=== PATIENT | female | born 1960 | race Caucasian/White ===

== ENCOUNTER 2021-05-06 08:57 | Inpatient (IN) | payer MEDICAID ==
[~2021-05-06] VITALS: Ht 157.5 cm; Wt 61.4 kg
[~2021-05-06 08:57] MED LIST: ASPI-611 PO; CALCIUM PO; MEGA RED PO; THY60T PO
[2021-05-06] MEDS ORDERED: normal saline 1000ML IV soln IVB ONE (09:20)
[2021-05-06 09:59] LABS: CLARITY,URINE CLEAR (Clear); GLUCOSE, URINE NEGATIVE (Neg); KETONES,URINE NEGATIVE (Neg); LEUKOCYTE ESTERASE ,URINE NEGATIVE (Neg); NITRITES, URINE NEGATIVE (Neg); OCCULT BLOOD,URINE NEGATIVE (Neg); PROTEIN,URINE NEGATIVE (Neg); UROBILINOGEN,URINE 0.2 E.U/dL (0.2-1.0)
[2021-05-06 10:01] LABS: BASOPHILS % (AUTO) 0.7 % (0-1); EOSINOPHILS # (AUTO) 0.2 X10'3 (0-0.9); EOSINOPHILS % (AUTO) 2.7 % (0-6); HEMATOCRIT 39.5 % (35.0-45.0); HEMOGLOBIN 13.1 g/dl (12.0-16.0); LYMPHOCYTES # (AUTO) 1.1 X10'3 (1.1-4.8); LYMPHOCYTES % (AUTO) 19.4 % (21-51); MEAN CORPUSCULAR HEMOGLOBIN 31.8 PG (27.0-31.0); MEAN CORPUSCULAR HGB CONC 33.1 g/dL (33.0-36.5); MEAN PLATELET VOLUME 9.2 FL (7.4-10.4); MONOCYTES # (AUTO) 0.6 X10'3 (0-0.9); MONOCYTES % (AUTO) 11.3 % (2-12); NEUTROPHILS # (AUTO) 3.7 X10'3 (1.8-7.7); NEUTROPHILS % (AUTO) 65.9 % (42-75); PLATELET COUNT 340 X10'3 (140-440); RED BLOOD COUNT 4.11 X10'6 (4.20-5.60); WHITE BLOOD COUNT 5.6 X10'3 (4.5-11.0)
[2021-05-06 10:04] LABS: UA COLLECTION TYPE CLN CATCH MIDSTREAM
[2021-05-06 10:05] LABS: COLOR,URINE DARK YELLOW (Yellow)
[2021-05-06 10:17] LABS: ALANINE AMINOTRANSFERASE 512 U/L (12-78); ALBUMIN 3.1 G/DL (3.4-5.0); ALBUMIN/GLOBULIN RATIO 0.6 (1.1-1.5); ALKALINE PHOSPHATASE 540 IU/L (46-116); ANION GAP 10 (8-16); ASPARTATE AMINO TRANSFERASE 242 U/L (10-37); BILIRUBIN,TOTAL 6.4 MG/DL (0.1-1.0); BLOOD UREA NITROGEN 9 MG/DL (7-18); BUN/CREATININE RATIO 13.2 (6.6-38.0); CALCIUM 9.6 MG/DL (8.5-10.1); CHLORIDE 102 MMOL/L (99-107); CREATININE 0.68 MG/DL (0.40-0.90); GLUCOSE 122 MG/DL (70-104); LIPASE 825 U/L (73-393); POTASSIUM 3.9 MMOL/L (3.5-5.1); SODIUM 138 MMOL/L (135-145); TOTAL CARBON DIOXIDE 25.8 MMOL/L (24-32); TOTAL PROTEIN 8.2 G/DL (6.4-8.2); eGFR 89 ML/MIN
[2021-05-06 10:17] LABS: URINE AMPHETAMINE SCREEN NEGATIVE (Neg); URINE BARBITUATE SCREEN NEGATIVE (Neg); URINE BENZODIAZEPINES SCREEN NEGATIVE (Neg); URINE CANNABINOID SCREEN NEGATIVE (Neg); URINE COCAINE SCREEN NEGATIVE (Neg); URINE METHADONE SCREEN NEGATIVE (Neg); URINE OPIATE SCREEN NEGATIVE (Neg); URINE PHENCYCLIDINE SCREEN NEGATIVE (Neg)
[2021-05-06 10:18] LABS: ETHANOL < 0.010 GM/DL (0.0-0.010)
[2021-05-06] MEDS ORDERED: piperacillin/tazo 3.375gm/50ml 50 ML IV ONE (10:40)
[2021-05-06] MEDS ORDERED: normal saline 1000ML IV soln IV ONE (10:40)
[2021-05-06] MEDS ORDERED: CefTRIAXone 2gm/D5W 50ml BAG 50 ML IV ONE (10:40)
--- NOTE | 2021-05-06 10:50 | NUR ---
hunter grace at bedside.
[2021-05-06] MEDS ORDERED: CefTRIAXone 2gm/NS 100ml IVPB 100 ML IV ONE (10:56)
--- NOTE | 2021-05-06 11:25 | NUR ---
MRI consent signed. Pt apparently had water while here, and is being delayed until 1500.
--- NOTE | 2021-05-06 11:27 | NUR ---
Called pharmacy re: 2gm Herve. Awaiting callback
--- NOTE | 2021-05-06 12:30 | NUR ---
Abx done. Updated pt, no apparent distress or needs at this time.
[2021-05-06] MEDS ORDERED: magnesium hydroxide 30ml (MOM) UD suspension PO PRN (12:45)
[2021-05-06] MEDS ORDERED: diphenhydrAMINE 25mg capsule PO PRN (12:45)
[2021-05-06] MEDS ORDERED: potassium Cl 20 mEq SR tablet PO PRN ×2 (12:45)
[2021-05-06] MEDS ORDERED: magnesium Cl slow-release 64mg tablet PO PRN (12:45)
[2021-05-06] MEDS ORDERED: magnesium 2GM in 50ml NS 50 ML IV PRN (12:45)
[2021-05-06] MEDS ORDERED: ondansetron/PF 4mg/2ml inj IV PRN (12:45)
[2021-05-06] MEDS: normal saline 1000ml 1,000 ML IV SCH (12:45)
[2021-05-06] MEDS ORDERED: magnesium 4gm in 100ml NS 100 ML IV PRN (12:45)
[2021-05-06] MEDS ORDERED: mag hydrox/Alum hydrox/simeth 30ml oral suspension PO PRN (12:45)
[2021-05-06] MEDS ORDERED: acetaminophen 650mg rectal suppository RC PRN (12:45)
[2021-05-06] MEDS ORDERED: HYDROcodone/acetaminophen 5mg/325mg tablet PO PRN (12:45)
[2021-05-06] MEDS ORDERED: morphine 2 MG/ML inj. syringe IV PRN ×2 (12:45)
[2021-05-06] MEDS ORDERED: HYDROcodone/acetaminophen 10/325mg tab PO PRN (12:45)
[2021-05-06] MEDS ORDERED: potassium CL 10mEq/100ml bag 100 ML IV PRN (12:45)
[2021-05-06] MEDS ORDERED: bisacodyl 10mg suppository rectal RC PRN (12:45)
[2021-05-06] MEDS ORDERED: acetaminophen 325mg tablet PO PRN ×2 (12:45)
[2021-05-06 13:17] LABS: HEMOGLOBIN A1C 6.2 % (4.5-6.2)
--- NOTE | 2021-05-06 15:14 | NUR ---
Received patient to room 360A via wheelchair accompanied by x1 staff. Patient is alert and oriented in no apparent acute distress and denies pain but has some discomfort at this time. Patient states, "Oh, I'm fine." Patient oriented to room and call light. Bed is low and locked. Call light placed within reach. Patient able to ambulate to bathroom independently.
[2021-05-06 15:16] VITALS: BP 149/80
--- NOTE | 2021-05-06 18:13 | NUR ---
Problems reprioritized. Patient report given, questions answered & plan of care reviewed with Do Fallon. Vasyl aware patient down to MRI.
--- NOTE | 2021-05-06 18:45 | NUR ---
Patient in room BLA[facility] 360. I have received report from PACO DOVE and had the opportunity to ask questions and assume patient care.
[2021-05-06 19:00] VITALS: BP 133/77
[2021-05-06] MEDS: docusate sod 100mg capsule PO SCH (19:31)
[2021-05-06] MEDS: K and/or MAG REPLACEMENT MC SCH (19:32)
[2021-05-07] VITALS (16 sets, daily range): BP systolic 120–155; BP diastolic 62–143
[2021-05-07] MEDS: piperacillin/tazo 3.375gm/50ml 50 ML IV SCH ×3 (00:46→16:14)
[2021-05-07] MEDS: normal saline 1000ml 1,000 ML IV SCH ×3 (00:55→12:29)
--- NOTE | 2021-05-07 06:00 | NUR ---
Patient in room [facility]LA[facility] 360. I have received report from Tessa Zarate RN and had the opportunity to ask questions and assume patient care.
--- NOTE | 2021-05-07 06:22 | NUR ---
Problems reprioritized. Patient report given, questions answered & plan of care reviewed with MARILEE DOVE.
[2021-05-07 06:39] LABS: BASOPHILS % (AUTO) 0.5 % (0-1); EOSINOPHILS # (AUTO) 0.1 X10'3 (0-0.9); EOSINOPHILS % (AUTO) 3.2 % (0-6); HEMATOCRIT 33.2 % (35.0-45.0); HEMOGLOBIN 11.1 g/dl (12.0-16.0); LYMPHOCYTES # (AUTO) 0.9 X10'3 (1.1-4.8); LYMPHOCYTES % (AUTO) 20.4 % (21-51); MEAN CORPUSCULAR HEMOGLOBIN 32.2 PG (27.0-31.0); MEAN CORPUSCULAR HGB CONC 33.5 g/dL (33.0-36.5); MEAN PLATELET VOLUME 9.9 FL (7.4-10.4); MONOCYTES # (AUTO) 0.7 X10'3 (0-0.9); MONOCYTES % (AUTO) 15.1 % (2-12); NEUTROPHILS # (AUTO) 2.7 X10'3 (1.8-7.7); NEUTROPHILS % (AUTO) 60.8 % (42-75); PLATELET COUNT 230 X10'3 (140-440); RED BLOOD COUNT 3.46 X10'6 (4.20-5.60); RED CELL DISTRIBUTION WIDTH 14.3 % (11.5-14.5); WHITE BLOOD COUNT 4.4 X10'3 (4.5-11.0)
[2021-05-07 07:03] LABS: ALANINE AMINOTRANSFERASE 390 U/L (12-78); ALBUMIN 2.4 G/DL (3.4-5.0); ALKALINE PHOSPHATASE 451 IU/L (46-116); ANION GAP 14 (8-16); ASPARTATE AMINO TRANSFERASE 180 U/L (10-37); BILIRUBIN,TOTAL 5.8 MG/DL (0.1-1.0); BLOOD UREA NITROGEN 4 MG/DL (7-18); BUN/CREATININE RATIO 7.8 (6.6-38.0); CALCIUM 8.7 MG/DL (8.5-10.1); CHLORIDE 107 MMOL/L (99-107); CREATININE 0.51 MG/DL (0.40-0.90); GLUCOSE 125 MG/DL (70-104); HDL CHOLESTEROL 12 MG/DL (35-60); LDL CHOLESTEROL 150 MG/DL (50-100); LIPASE 412 U/L (73-393); MAGNESIUM 1.9 MG/DL (1.5-2.4); POTASSIUM 3.6 MMOL/L (3.5-5.1); SODIUM 143 MMOL/L (135-145); eGFR > 90 ML/MIN
[2021-05-07 07:05] LABS: ALBUMIN/GLOBULIN RATIO 0.6 (1.1-1.5); CHOLESTEROL 216 MG/DL (0-200); PHOSPHORUS 3.5 MG/DL (2.3-4.5); TOTAL PROTEIN 6.5 G/DL (6.4-8.2); TRIGLYCERIDES 153 MG/DL (20-135)
[2021-05-07] MEDS: docusate sod 100mg capsule PO SCH ×2 (08:00→20:00)
[2021-05-07] MEDS: K and/or MAG REPLACEMENT MC SCH ×2 (08:00→20:00)
[2021-05-07] MEDS: thyroid, pork 30mg tablet PO SCH (08:35)
[2021-05-07] MEDS: pantoprazole 40mg Tablet.DR PO SCH (08:41)
[2021-05-07 08:47] LABS: PLATELET ESTIMATE NORMAL; TOTAL CELLS COUNTED 100
--- NOTE | 2021-05-07 10:46 | NUR ---
Per Dr. Hernández patient planned for ERCP with Dr. Bedolla and keep patient NPO.
[2021-05-07] MEDS ORDERED: iohexol 300 MG/1 ML 50ml polymer ONE ×2 (13:19→16:48)
[2021-05-07] MEDS ORDERED: iohexol 300mg/ml 100ml inj. ONE (13:19)
--- NOTE | 2021-05-07 15:48 | NUR ---
Message: RE MARIANA SANTOS RM 360A; PER CORE EXTRUDER PT ALREADY HAD MRCP YESTERDAY. ARE WE KEEPING HER NPO OR MAY WE GIVE HER A FOOD? Custom Responses: promotional table spacer Transaction number: [id number]
[2021-05-07] MEDS ORDERED: GADOTERATE MEGLUMINE 7.5 MMOL/15 ML VIAL IV ONE (16:17)
[2021-05-07] MEDS ORDERED: MIDAZolam 1 MG/ML 5ML VIAL ONE (16:48)
[2021-05-07] MEDS ORDERED: glucagon, human recombinant 1mg kit ONE (16:48)
[2021-05-07] MEDS ORDERED: fentaNYL/PF 50MCG/1 ML 2ML syringe ONE (16:48)
[2021-05-07] MEDS ORDERED: LIDOcaine Viscous 15ml cup ONE (16:48)
--- NOTE | 2021-05-07 18:24 | NUR ---
Problems reprioritized. Patient report given, questions answered & plan of care reviewed with LIBBY SOUZA RN.
--- NOTE | 2021-05-07 18:30 | NUR ---
I have received report from MARILEE DOVE and had the opportunity to ask questions and assume patient care. PATIENT IN GI LAB FOR ERCP.
--- NOTE | 2021-05-07 19:50 | NUR ---
PATIENT BACK TO THE FLOOR AFTER ERCP WAS DONE. CLEAR LIQUID DIET GIVEN.
[2021-05-08] VITALS: BP 134/69
[2021-05-08] MEDS: piperacillin/tazo 3.375gm/50ml 50 ML IV SCH ×2 (00:23→09:08)
[2021-05-08] MEDS: normal saline 1000ml 1,000 ML IV SCH ×2 (04:14→14:45)
--- NOTE | 2021-05-08 06:30 | NUR ---
Problems reprioritized. Patient report given, questions answered & plan of care reviewed with MARILEE DOVE.
--- NOTE | 2021-05-08 06:35 | NUR ---
Patient in room [facility]LA[facility] 360. I have received report from LIBBY SOUZA RN and had the opportunity to ask questions and assume patient care.
[2021-05-08 06:43] LABS: BASOPHILS % (AUTO) 0.6 % (0-1); EOSINOPHILS # (AUTO) 0.1 X10'3 (0-0.9); EOSINOPHILS % (AUTO) 2.4 % (0-6); HEMATOCRIT 33.1 % (35.0-45.0); HEMOGLOBIN 11.3 g/dl (12.0-16.0); LYMPHOCYTES # (AUTO) 0.9 X10'3 (1.1-4.8); LYMPHOCYTES % (AUTO) 15.1 % (21-51); MEAN CORPUSCULAR HEMOGLOBIN 32.8 PG (27.0-31.0); MEAN CORPUSCULAR HGB CONC 34.1 g/dL (33.0-36.5); MEAN CORPUSCULAR VOLUME 96.3 FL (78-98); MEAN PLATELET VOLUME 9.7 FL (7.4-10.4); MONOCYTES # (AUTO) 0.6 X10'3 (0-0.9); MONOCYTES % (AUTO) 10.5 % (2-12); NEUTROPHILS # (AUTO) 4.4 X10'3 (1.8-7.7); NEUTROPHILS % (AUTO) 71.4 % (42-75); PLATELET COUNT 247 X10'3 (140-440); RED BLOOD COUNT 3.43 X10'6 (4.20-5.60); WHITE BLOOD COUNT 6.1 X10'3 (4.5-11.0)
[2021-05-08 06:52] LABS: ALANINE AMINOTRANSFERASE 318 U/L (12-78); ALBUMIN 2.4 G/DL (3.4-5.0); ALBUMIN/GLOBULIN RATIO 0.5 (1.1-1.5); ALKALINE PHOSPHATASE 402 IU/L (46-116); ANION GAP 12 (8-16); ASPARTATE AMINO TRANSFERASE 90 U/L (10-37); BILIRUBIN,TOTAL 3.2 MG/DL (0.1-1.0); BLOOD UREA NITROGEN 3 MG/DL (7-18); BUN/CREATININE RATIO 6.5 (6.6-38.0); CALCIUM 8.5 MG/DL (8.5-10.1); CHLORIDE 108 MMOL/L (99-107); CREATININE 0.46 MG/DL (0.40-0.90); GLUCOSE 96 MG/DL (70-104); LIPASE 424 U/L (73-393); MAGNESIUM 1.8 MG/DL (1.5-2.4); PHOSPHORUS 4.2 MG/DL (2.3-4.5); POTASSIUM 3.5 MMOL/L (3.5-5.1); SODIUM 143 MMOL/L (135-145); TOTAL CARBON DIOXIDE 23.3 MMOL/L (24-32); TOTAL PROTEIN 6.8 G/DL (6.4-8.2); eGFR > 90 ML/MIN
[2021-05-08] MEDS: docusate sod 100mg capsule PO SCH (08:00)
[2021-05-08] MEDS: K and/or MAG REPLACEMENT MC SCH (08:00)
[2021-05-08 08:23] VITALS: BP 131/77
[2021-05-08] MEDS: thyroid, pork 30mg tablet PO SCH (09:03)
[2021-05-08] MEDS: pantoprazole 40mg Tablet.DR PO SCH (09:03)
[2021-05-08 11:27] VITALS: BP 146/73
[2021-05-08 13:00] VITALS: BP 148/67
--- NOTE | 2021-05-08 13:07 | NUR ---
per pt, urine pale clear normal Addendum: 05/08/21 at 1314 by Nikki SHEPPARD Amended: Links added.
--- NOTE | 2021-05-08 13:12 | NUR ---
pt NPO with potential nutrition problem Addendum: 05/08/21 at 1314 by Nikki SHEPPARD Amended: Links added.
--- NOTE | 2021-05-08 14:56 | NUR ---
ANGIO/IR INFORMED ME ORDERED BIPOSY WILL NOT BE ABLE TO BE PERFORMED TODAY AND POSSIBLY NOT TOMORROW. PATIENT STATED SHE DOES NOT WANT TO WAIT, AND IS WILLING TO FOLLOW UP WITH PCP FOR NEEDED TESTS/PROCEDURES. DR JUSTICE NOTIFIED. DR JUTSICE TO [place] TODAY.
[2021-05-08] MEDS ORDERED: PANT40TA54 PO ×2 (16:13)
[2021-05-08] MEDS ORDERED: AMOX-580 PO ×2 (16:13)
--- NOTE | 2021-05-08 17:15 | NUR ---
pt discharged, ambulated to door. PIV removed. All discharge orders given
[2021-05-16 09:29] LABS: AFP,SERUM, TUMOR MARKER 1.9
== END 2021-05-08 17:11 | disposition home or self-care (01) ==
LOC: ER 08:57 → ED HOLD 12:48 → SUR 3N 14:59
PROVIDERS: ADMIT Family Medicine; ATTEND Family Medicine
PROC: 0F798DZ Dilation of Common Bile Duct with Intraluminal Device, Via Natural or Artificial Opening Endoscopic (ICD-10-PCS; principal; 2021-05-07)
PROC: 0FD98ZX Extraction of Common Bile Duct, Via Natural or Artificial Opening Endoscopic, Diagnostic (ICD-10-PCS; 2021-05-07)
PROC: BW241ZZ Computerized Tomography (CT Scan) of Chest and Abdomen using Low Osmolar Contrast (ICD-10-PCS; 2021-05-07)
PROC: B0201ZZ Computerized Tomography (CT Scan) of Brain using Low Osmolar Contrast (ICD-10-PCS; 2021-05-07)
DX: K80.51 Calculus of bile duct without cholangitis or cholecystitis with obstruction (principal); K85.90 Acute pancreatitis without necrosis or infection, unspecified; E03.9 Hypothyroidism, unspecified; F10.20 Alcohol dependence, uncomplicated; K76.9 Liver disease, unspecified; Z82.49 Family history of ischemic heart disease and other diseases of the circulatory system
CPT/HCPCS: 36415; 43261; 43262; 43274; 70470; 71045; 71260; 74176; 74181; 74183; 76700; 80053; 80061; 80305; 80320; 81003; 82103; 82140; 82378; 83036; 83605; 83690; 83735; 84100; 84443; 85007; 85025; 85610; 86301; 86304; 87040; 87081; 99152; 99153; 99285; A4620; A9575; C1769; C2625; G0378; J0696; J1610; J2250; J2543; J3010; J7030; J7040; Q9967

== ENCOUNTER 2021-05-14 07:40 | Emergency (ER) | payer MEDICAID ==
[~2021-05-14] VITALS: Ht 160 cm; Wt 61.4 kg
[~2021-05-14 07:40] MED LIST changes: +AMOX-580 PO; -ASPI-611 PO; -CALCIUM PO; -MEGA RED PO; +PANT40TA54 PO
[2021-05-14] MEDS ORDERED: normal saline 1000ML IV soln IVB ONE (08:15)
[2021-05-14] MEDS ORDERED: morphine 4 MG/ML inj SYRINge IV PRN (08:15)
[2021-05-14] MEDS ORDERED: ondansetron/PF 4mg/2ml inj IV ONE (08:15)
[2021-05-14 08:37] LABS: BASOPHILS % (AUTO) 0.3 % (0-1); EOSINOPHILS # (AUTO) 0.2 X10'3 (0-0.9); EOSINOPHILS % (AUTO) 2.8 % (0-6); HEMATOCRIT 36.3 % (35.0-45.0); HEMOGLOBIN 12.1 g/dl (12.0-16.0); LYMPHOCYTES # (AUTO) 0.9 X10'3 (1.1-4.8); LYMPHOCYTES % (AUTO) 12.4 % (21-51); MEAN CORPUSCULAR HGB CONC 33.2 g/dL (33.0-36.5); MEAN CORPUSCULAR VOLUME 93.3 FL (78-98); MEAN PLATELET VOLUME 8.6 FL (7.4-10.4); MONOCYTES # (AUTO) 0.8 X10'3 (0-0.9); MONOCYTES % (AUTO) 11.9 % (2-12); NEUTROPHILS # (AUTO) 5.2 X10'3 (1.8-7.7); NEUTROPHILS % (AUTO) 72.6 % (42-75); PLATELET COUNT 354 X10'3 (140-440); RED BLOOD COUNT 3.89 X10'6 (4.20-5.60); RED CELL DISTRIBUTION WIDTH 13.8 % (11.5-14.5); WHITE BLOOD COUNT 7.1 X10'3 (4.5-11.0)
[2021-05-14 08:56] LABS: ALANINE AMINOTRANSFERASE 98 U/L (12-78); ALBUMIN/GLOBULIN RATIO 0.6 (1.1-1.5); ALKALINE PHOSPHATASE 242 IU/L (46-116); ANION GAP 13 (8-16); ASPARTATE AMINO TRANSFERASE 37 U/L (10-37); BILIRUBIN,TOTAL 1.5 MG/DL (0.1-1.0); BLOOD UREA NITROGEN 10 MG/DL (7-18); BUN/CREATININE RATIO 16.7 (6.6-38.0); CALCIUM 9.6 MG/DL (8.5-10.1); CHLORIDE 99 MMOL/L (99-107); GLUCOSE 118 MG/DL (70-104); LIPASE 200 U/L (73-393); POTASSIUM 4.4 MMOL/L (3.5-5.1); SODIUM 139 MMOL/L (135-145); TOTAL CARBON DIOXIDE 26.9 MMOL/L (24-32); TOTAL PROTEIN 8.2 G/DL (6.4-8.2); eGFR > 90 ML/MIN
[2021-05-14 09:45] LABS: CLARITY,URINE CLEAR (Clear); GLUCOSE, URINE NEGATIVE (Neg); KETONES,URINE 15 mg/dl (Neg); LEUKOCYTE ESTERASE ,URINE NEGATIVE (Neg); NITRITES, URINE NEGATIVE (Neg); OCCULT BLOOD,URINE NEGATIVE (Neg); PH,URINE 6.5 (4.8-8.0); PROTEIN,URINE TRACE mg/dl (Neg)
--- NOTE | 2021-05-14 09:45 | NUR ---
Report given to DERRELL Feldman in the recovery room.
[2021-05-14 09:48] LABS: UA COLLECTION TYPE CLN CATCH MIDSTREAM
[2021-05-14 09:49] LABS: COLOR,URINE DARK YELLOW (Yellow)
[2021-05-14 09:51] LABS: BACTERIA,URINE 1+ /HPF (Neg); MUCUS STRANDS MODERATE /LPF (Neg); RBC,URINE NONE SEEN /HPF (0-2); SQUAMOUS EPITHELIAL CELL,UR FEW /LPF (FEW)
[2021-05-14] MEDS ORDERED: PANT-47 PO (11:16)
[2021-05-14] MEDS ORDERED: THYR30TA2 PO (11:16)
[2021-05-14] MEDS ORDERED: gelatin sponge, absorbable (Gelfoam 12-7MM) sponge TP ONE (12:52)
[2021-05-14] MEDS ORDERED: LIDOcaine 1% (10mg/ml)w/preservative inj. 20ml MDV ONE (12:52)
[2021-05-14] MEDS ORDERED: fentaNYL/PF 50MCG/1 ML 2ML syringe ONE (12:54)
[2021-05-14] MEDS ORDERED: midazolam 1 mg/ML 2ml injection ONE (12:54)
[2021-05-14 13:15] VITALS: BP 133/64
[2021-05-14 13:20] VITALS: BP 158/84
[2021-05-14 13:25] VITALS: BP 146/82
[2021-05-14 13:30] VITALS: BP 162/80
[2021-05-14] MEDS ORDERED: HYDROcodone/acetaminophen 5mg/325mg tablet PO PRN ×2 (14:25)
[2021-05-14 17:19] VITALS: BP 117/82
== END 2021-05-14 16:40 | disposition home or self-care (01) ==
LOC: ER 07:40
DX: R10.10 Upper abdominal pain, unspecified (principal); R16.0 Hepatomegaly, not elsewhere classified; Z98.890 Other specified postprocedural states; Z79.899 Other long term (current) drug therapy
CPT/HCPCS: 36415; 47000; 76942; 80053; 81001; 83690; 85025; 87088; 96360; 99284; J2250; J3010; J3490; J7030

== ENCOUNTER 2021-05-30 08:53 | Inpatient (IN) | payer MEDICAID ==
[~2021-05-30] VITALS: Ht 157.5 cm; Wt 54.5 kg
[~2021-05-30 08:53] MED LIST changes: -AMOX-580 PO; +PANT-47 PO; -PANT40TA54 PO; -THY60T PO; +THYR30TA2 PO
[2021-05-30] MEDS ORDERED: normal saline 1000ML IV soln IV ONE (09:15)
[2021-05-30] MEDS ORDERED: dexamethasone sod phosphate 10mg/ml inj IV STA (09:45)
[2021-05-30 09:46] LABS: BASOPHILS % (AUTO) 0.1 % (0-1); EOSINOPHILS % (AUTO) 0.1 % (0-6); HEMATOCRIT 31.9 % (35.0-45.0); HEMOGLOBIN 10.5 g/dl (12.0-16.0); LYMPHOCYTES # (AUTO) 0.7 X10'3 (1.1-4.8); LYMPHOCYTES % (AUTO) 3.4 % (21-51); MEAN CORPUSCULAR HEMOGLOBIN 30.7 PG (27.0-31.0); MEAN CORPUSCULAR HGB CONC 32.9 g/dL (33.0-36.5); MEAN CORPUSCULAR VOLUME 93.3 FL (78-98); MEAN PLATELET VOLUME 9.4 FL (7.4-10.4); MONOCYTES % (AUTO) 5.1 % (2-12); NEUTROPHILS # (AUTO) 17.5 X10'3 (1.8-7.7); NEUTROPHILS % (AUTO) 91.3 % (42-75); PLATELET COUNT 217 X10'3 (140-440); RED BLOOD COUNT 3.42 X10'6 (4.20-5.60); RED CELL DISTRIBUTION WIDTH 14.6 % (11.5-14.5); WHITE BLOOD COUNT 19.2 X10'3 (4.5-11.0)
[2021-05-30] MEDS ORDERED: piperacillin/tazo 3.375gm/50ml 50 ML IV ONE (09:50)
[2021-05-30] MEDS ORDERED: vancomycin/NS 1 GM ADD-VANTAGE 250 ML IV ONE (09:50)
[2021-05-30 10:04] LABS: ALANINE AMINOTRANSFERASE 373 U/L (12-78); ALBUMIN 2.2 G/DL (3.4-5.0); ALBUMIN/GLOBULIN RATIO 0.4 (1.1-1.5); ALKALINE PHOSPHATASE 433 IU/L (46-116); ANION GAP 26 (8-16); ASPARTATE AMINO TRANSFERASE 336 U/L (10-37); BILIRUBIN,TOTAL 3.5 MG/DL (0.1-1.0); BLOOD UREA NITROGEN 30 MG/DL (7-18); BUN/CREATININE RATIO 9.2 (6.6-38.0); CALCIUM 8.2 MG/DL (8.5-10.1); CHLORIDE 87 MMOL/L (99-107); CREATININE 3.27 MG/DL (0.40-0.90); GLUCOSE 151 MG/DL (70-104); MAGNESIUM 1.8 MG/DL (1.5-2.4); POTASSIUM 3.7 MMOL/L (3.5-5.1); SODIUM 129 MMOL/L (135-145); TOTAL CARBON DIOXIDE 15.7 MMOL/L (24-32); TOTAL PROTEIN 7.1 G/DL (6.4-8.2); eGFR 14 ML/MIN
--- NOTE | 2021-05-30 10:19 | NUR ---
MD MADE AWARE 2 LITERS OF FLUID FINISHED NO IMPROVEMENT OF BP AT THIS TIME WILL CONTINUE TO MONITOR AND AWAIT FOR FURTHER ORDERS
[2021-05-30 10:44] LABS: CLARITY,URINE SLIGHTLY CLOUDY (Clear); GLUCOSE, URINE NEGATIVE (Neg); KETONES,URINE NEGATIVE (Neg); LEUKOCYTE ESTERASE ,URINE NEGATIVE (Neg); NITRITES, URINE NEGATIVE (Neg); OCCULT BLOOD,URINE TRACE-INTACT (Neg); PROTEIN,URINE 100 mg/dl (Neg); UROBILINOGEN,URINE 0.2 E.U/dL (0.2-1.0)
[2021-05-30] MEDS ORDERED: normal saline 1000ML IV soln IVB ONE (10:45)
[2021-05-30] MEDS ORDERED: ringers solution, lactated 1000ml IV soln IV ONE (10:45)
[2021-05-30 10:51] LABS: COLOR,URINE AMBER (Yellow); UA COLLECTION TYPE FOLEY CATH
[2021-05-30 10:53] LABS: BACTERIA,URINE FEW /HPF (Neg); MUCUS STRANDS FEW /LPF (Neg); RBC,URINE 0-2 /HPF (0-2); RENAL CELLS, URINE FEW /HPF; SQUAMOUS EPITHELIAL CELL,UR NONE SEEN /LPF (FEW); WBC,URINE 0-4 /HPF (0-4)
--- NOTE | 2021-05-30 10:56 | NUR ---
DR MAKIFS TO BEDSIDE FOR CENTRAL LINE PLACEMENT
[2021-05-30 11:08] LABS: TOTAL CELLS COUNTED 100
[2021-05-30 11:09] LABS: BURR CELLS 1+; PLATELET ESTIMATE NORMAL; ROULEAUX 1+; TOXIC VACUOLATION 2+
[2021-05-30] MEDS ORDERED: HYDR-3972 PO (12:43)
--- NOTE | 2021-05-30 13:11 | NUR ---
dr calvo at bedside talking with pt and family about comfort care
[2021-05-30] MEDS ORDERED: HYDROcodone/acetaminophen 10/325mg tab PO PRN (14:05)
[2021-05-30] MEDS ORDERED: magnesium 4gm in 100ml NS 100 ML IV PRN (14:10)
[2021-05-30] MEDS ORDERED: morphine 2 MG/ML inj. syringe IV PRN (14:10)
[2021-05-30] MEDS ORDERED: albuterol 2.5 MG/3 ML nebule NEB PRN (14:10)
[2021-05-30] MEDS ORDERED: acetaminophen 325mg tablet PO PRN (14:10)
[2021-05-30] MEDS ORDERED: ipratropium/albuterol 3ml nebule NEB PRN (14:10)
[2021-05-30] MEDS ORDERED: potassium CL 10mEq/100ml bag 100 ML IV PRN (14:10)
[2021-05-30] MEDS ORDERED: potassium Cl 20 mEq SR tablet PO PRN ×2 (14:10)
[2021-05-30] MEDS ORDERED: ondansetron/PF 4mg/2ml inj IV PRN (14:10)
[2021-05-30] MEDS ORDERED: morphine 4 MG/ML inj SYRINge IV PRN (14:10)
[2021-05-30] MEDS ORDERED: naloxone 0.4 mg/ml inj IV PRN (14:10)
[2021-05-30] MEDS ORDERED: magnesium 2GM in 50ml NS 50 ML IV PRN (14:10)
[2021-05-30 14:26] LABS: LIPASE < 50 U/L (73-393)
--- NOTE | 2021-05-30 15:45 | NUR ---
Recieved report from ER. Pt. not in room yet but received phone call from radiology= PAGER ID: [phone] MESSAGE: Cheryl Oliva called about cxr to notify critical findings of small right sided pneumothorax. Ledy [id number]
[2021-05-30 16:50] VITALS: BP 101/67
[2021-05-30] MEDS: sodium bicarbonate (8.4%) inj. 100 MEQ in dextrose 5%-water 1,000 ML IV SCH (17:54)
[2021-05-30] MEDS: piperacillin/tazo 4.5gm/100ml 100 ML IV SCH (17:54)
[2021-05-30 18:00] VITALS: BP 89/58
--- NOTE | 2021-05-30 18:09 | NUR ---
Report given to Yolande DOVE.
--- NOTE | 2021-05-30 18:22 | NUR ---
Patient in room [facility]LA[facility] 346. I have received report from Ledy DOVE and had the opportunity to ask questions and assume patient care.
[2021-05-30 18:30] VITALS: BP 113/70
[2021-05-30] MEDS: heparin, porcine 5000 units/ml vial SQ SCH (19:40)
[2021-05-30] MEDS: K and/or MAG REPLACEMENT MC SCH (20:00)
--- NOTE | 2021-05-30 23:00 | NUR ---
took over patient care from DERRELL Lanier. Introduced myself to patient and went over POC. patient stated that she had had a breathing tx and felt much better, without SOB. She also reported that she had a BM, refused ordered Colace. DARTed and skin checked. patient oriented to call light and bathroom. no other needs at this time.
[2021-05-30] MEDS: docusate sod 100mg capsule PO SCH (23:42)
--- NOTE | 2021-05-30 23:46 | NUR ---
Problems reprioritized. Patient report given, questions answered & plan of care reviewed with Bing DOVE.
[2021-05-31] MEDS: piperacillin/tazo 4.5gm/100ml 100 ML IV SCH ×4 (00:25→23:34)
[2021-05-31] MEDS: sodium bicarbonate (8.4%) inj. 100 MEQ in dextrose 5%-water 1,000 ML IV SCH ×3 (01:10→23:34)
[2021-05-31 06:11] LABS: BASOPHILS % (AUTO) 0.1 % (0-1); EOSINOPHILS # (AUTO) 0.4 X10'3 (0-0.9); EOSINOPHILS % (AUTO) 2.2 % (0-6); HEMATOCRIT 26.9 % (35.0-45.0); HEMOGLOBIN 8.7 g/dl (12.0-16.0); LYMPHOCYTES # (AUTO) 0.5 X10'3 (1.1-4.8); LYMPHOCYTES % (AUTO) 2.8 % (21-51); MEAN CORPUSCULAR HEMOGLOBIN 29.3 PG (27.0-31.0); MEAN CORPUSCULAR HGB CONC 32.4 g/dL (33.0-36.5); MEAN CORPUSCULAR VOLUME 90.6 FL (78-98); MEAN PLATELET VOLUME 9.9 FL (7.4-10.4); MONOCYTES # (AUTO) 0.9 X10'3 (0-0.9); MONOCYTES % (AUTO) 4.5 % (2-12); NEUTROPHILS # (AUTO) 17.4 X10'3 (1.8-7.7); NEUTROPHILS % (AUTO) 90.4 % (42-75); PLATELET COUNT 119 X10'3 (140-440); RED BLOOD COUNT 2.97 X10'6 (4.20-5.60); RED CELL DISTRIBUTION WIDTH 14.6 % (11.5-14.5); WHITE BLOOD COUNT 19.2 X10'3 (4.5-11.0)
--- NOTE | 2021-05-31 06:14 | NUR ---
Problems reprioritized. Patient report given, questions answered & plan of care reviewed with DERRELL James.
[2021-05-31 06:19] LABS: ALANINE AMINOTRANSFERASE 409 U/L (12-78); ALBUMIN 1.6 G/DL (3.4-5.0); ALBUMIN/GLOBULIN RATIO 0.4 (1.1-1.5); ALKALINE PHOSPHATASE 303 IU/L (46-116); ANION GAP 16 (8-16); ASPARTATE AMINO TRANSFERASE 337 U/L (10-37); BILIRUBIN,TOTAL 1.9 MG/DL (0.1-1.0); BLOOD UREA NITROGEN 36 MG/DL (7-18); BUN/CREATININE RATIO 15.3 (6.6-38.0); CALCIUM 6.7 MG/DL (8.5-10.1); CHLORIDE 95 MMOL/L (99-107); CREATININE 2.36 MG/DL (0.40-0.90); GLUCOSE 162 MG/DL (70-104); MAGNESIUM 1.9 MG/DL (1.5-2.4); POTASSIUM 4.5 MMOL/L (3.5-5.1); SODIUM 132 MMOL/L (135-145); TOTAL CARBON DIOXIDE 20.8 MMOL/L (24-32); TOTAL PROTEIN 5.7 G/DL (6.4-8.2); eGFR 21 ML/MIN
[2021-05-31 07:30] LABS: PLATELET ESTIMATE DECREASED; ROULEAUX 1+; TOTAL CELLS COUNTED 100
[2021-05-31 08:00] VITALS: BP 103/61
[2021-05-31] MEDS: docusate sod 100mg capsule PO SCH ×2 (08:00→19:54)
[2021-05-31] MEDS: K and/or MAG REPLACEMENT MC SCH ×2 (08:00→20:00)
[2021-05-31] MEDS: thyroid, pork 30mg tablet PO SCH (08:46)
[2021-05-31] MEDS: heparin, porcine 5000 units/ml vial SQ SCH ×2 (08:48→19:54)
[2021-05-31 11:00] VITALS: BP 97/61
--- NOTE | 2021-05-31 13:32 | NUR ---
Malnutrition consult re: "severe sepsis/wt loss". Per H&P pt admit for sepsis likely secondary cholangitis, leukocytosis and lactic acidosis secondary to sepsis, metabolic acidosis, hyperbilirubinemia with transaminitis likely secondary metastatic pancreatic cancer, and acute renal failure. Pt seen at bedside reports UBW 135 lbs with roughly 15 lb wt loss since February. Pt states she recently weighed 120 lbs however was back up to 122 lbs on home scale. Current documented wt isn't scaled however pt with a scaled wt at previous admit of 135 lbs 05/06. Unsure if reported wt loss is accurate as recent scaled wt hx is 100% reported UBW and pt denied wt loss or decreased appetite per malnutrition risk screen at that admit. Pt states appetite fluctuates with varied PO intake though pt does report consuming meals and snacks. Noted pt documented with 0% PO intake of first two clear liquid meals, pending documentation of PO intake on low fat/low CHOL diet. Pt with no visible fat or muscle wasting and no documented decrease in muscle strength or edema. Pt currently lacks a minimum of two criteria for malnutrition though is at a high risk in view of stage IV CA. Pt states she currently is not receiving tx for CA and reports having pancreatic enzymes however she hasn't been using them as she hasn't "felt like (she) needed to", though does report taking probiotics to assist with bowel regularity. RD encouraged patient to use pancreatic enzymes per rx and discussed the role they play. Pt declines ONS to optimize PO intake and states she does not like Ensure d/t it containing corn syrup, though is agreeable to smoothies and fruit TIDWM, d/w dietary. Pt denies food allergies or difficulty chewing/swallowing. Pt provided with RD contact information and encouraged to reach out if needed. Will continue to follow closely and further monitor qualifying criteria for malnutrition. Recommendations: 1) Liberalize to regular diet to optimize PO intake 2) [place] food preferences: Smoothie TIDWM, fruit TIDWM; no Ensure 3) Monitor need for pancreatic enzymes in view of stage IV pancreatic CA; lipase <50 U/L at this time 4) Bowel care per rx 5) Scaled weight this admit; weekly scaled weights thereafter Addendum: 05/31/21 at [address] Amended: Links added.
--- NOTE | 2021-05-31 18:22 | NUR ---
Patient report given to Peri DOVE. Patient resting comfortably. Family at bedside.
--- NOTE | 2021-05-31 19:03 | NUR ---
Patient in room [facility] 352. I have received report from DARREN DOVE and had the opportunity to ask questions and assume patient care.
[2021-05-31 20:44] VITALS: BP 97/68
[2021-06-01] VITALS: BP 98/50
--- NOTE | 2021-06-01 00:22 | NUR ---
patient appears stable no c/o pain ,will continue to monitor. B/P 98/50 manually
--- NOTE | 2021-06-01 06:28 | NUR ---
Problems reprioritized. Patient report given, questions answered & plan of care reviewed with elizabeth DOVE.
--- NOTE | 2021-06-01 06:38 | NUR ---
Patient in room [facility] 352. I have received report from DERRELL BOONE and had the opportunity to ask questions and assume patient care.
[2021-06-01 07:00] VITALS: BP 75/50
[2021-06-01 07:07] LABS: BASOPHILS % (AUTO) 0.1 % (0-1); EOSINOPHILS % (AUTO) 0.2 % (0-6); HEMATOCRIT 23.2 % (35.0-45.0); HEMOGLOBIN 7.7 g/dl (12.0-16.0); LYMPHOCYTES % (AUTO) 4.2 % (21-51); MEAN CORPUSCULAR HEMOGLOBIN 29.8 PG (27.0-31.0); MEAN CORPUSCULAR HGB CONC 33.3 g/dL (33.0-36.5); MEAN CORPUSCULAR VOLUME 89.7 FL (78-98); MEAN PLATELET VOLUME 9.8 FL (7.4-10.4); MONOCYTES # (AUTO) 0.6 X10'3 (0-0.9); MONOCYTES % (AUTO) 2.7 % (2-12); NEUTROPHILS # (AUTO) 21.6 X10'3 (1.8-7.7); NEUTROPHILS % (AUTO) 92.8 % (42-75); PLATELET COUNT 86 X10'3 (140-440); RED BLOOD COUNT 2.59 X10'6 (4.20-5.60); RED CELL DISTRIBUTION WIDTH 14.5 % (11.5-14.5); WHITE BLOOD COUNT 23.3 X10'3 (4.5-11.0)
[2021-06-01 07:14] LABS: ALANINE AMINOTRANSFERASE 275 U/L (12-78); ALBUMIN 1.5 G/DL (3.4-5.0); ALBUMIN/GLOBULIN RATIO 0.4 (1.1-1.5); ALKALINE PHOSPHATASE 323 IU/L (46-116); ANION GAP 9 (8-16); ASPARTATE AMINO TRANSFERASE 115 U/L (10-37); BLOOD UREA NITROGEN 33 MG/DL (7-18); BUN/CREATININE RATIO 18.3 (6.6-38.0); CALCIUM 7.2 MG/DL (8.5-10.1); CHLORIDE 99 MMOL/L (99-107); GLUCOSE 149 MG/DL (70-104); MAGNESIUM 2.1 MG/DL (1.5-2.4); POTASSIUM 3.7 MMOL/L (3.5-5.1); SODIUM 137 MMOL/L (135-145); TOTAL CARBON DIOXIDE 29.4 MMOL/L (24-32); TOTAL PROTEIN 5.6 G/DL (6.4-8.2); eGFR 29 ML/MIN
[2021-06-01 07:40] VITALS: BP 104/61
[2021-06-01] MEDS: piperacillin/tazo 4.5gm/100ml 100 ML IV SCH ×2 (07:44→16:47)
[2021-06-01] MEDS: heparin, porcine 5000 units/ml vial SQ SCH (08:00)
[2021-06-01] MEDS: docusate sod 100mg capsule PO SCH ×2 (08:00→19:42)
[2021-06-01] MEDS: K and/or MAG REPLACEMENT MC SCH ×2 (08:00→19:45)
[2021-06-01] MEDS: thyroid, pork 30mg tablet PO SCH (08:16)
[2021-06-01 09:16] LABS: PLATELET ESTIMATE DECREASED; TOTAL CELLS COUNTED 100
[2021-06-01] MEDS: normal saline 1000ml 1,000 ML IV SCH ×2 (10:54→19:43)
[2021-06-01 11:00] VITALS: BP 105/68
[2021-06-01 11:30] LABS: % IRON SATURATION 25 % (11-46); IRON 32 UG/DL (49-151); TOTAL IRON BINDING CAPACITY 129 UG/DL (259-388)
[2021-06-01] MEDS: ascorbic acid 500mg tablet PO SCH (16:47)
[2021-06-01] MEDS: calcium carbonate 500mg chew tablet PO SCH (16:47)
[2021-06-01] MEDS: multivitamins, therapeutics tablet PO SCH (16:48)
--- NOTE | 2021-06-01 17:25 | NUR ---
PATIENT DOES NOT LIKE THE HOSPITAL'S FOOD, EATS MINIMAL FROM HOSPITAL, FAMILY IS BRINGING IN JUICES, WATER AND FOODS Addendum: 06/01/21 at 1726 by Lisset Garcia RN Amended: Links added.
[2021-06-01] MEDS: FERROUS SULFATE 142 MG TABLET.ER (45mg elemental) PO SCH (17:55)
--- NOTE | 2021-06-01 18:30 | NUR ---
Problems reprioritized. Patient report given, questions answered & plan of care reviewed with DERRELL GAMA.
[2021-06-01 20:00] VITALS: BP 97/68
[2021-06-02] VITALS: BP 89/58
[2021-06-02] MEDS: piperacillin/tazo 4.5gm/100ml 100 ML IV SCH ×4 (00:47→23:38)
[2021-06-02] MEDS: normal saline 1000ml 1,000 ML IV SCH ×2 (04:37→16:16)
--- NOTE | 2021-06-02 06:17 | NUR ---
Problems reprioritized. Patient report given, questions answered & plan of care reviewed with Lisset DOVE.
[2021-06-02 06:44] LABS: BASOPHILS % (AUTO) 0.2 % (0-1); EOSINOPHILS % (AUTO) 0.2 % (0-6); HEMATOCRIT 24.9 % (35.0-45.0); HEMOGLOBIN 8.2 g/dl (12.0-16.0); LYMPHOCYTES # (AUTO) 1.4 X10'3 (1.1-4.8); LYMPHOCYTES % (AUTO) 5.9 % (21-51); MEAN CORPUSCULAR HEMOGLOBIN 29.4 PG (27.0-31.0); MEAN CORPUSCULAR HGB CONC 32.8 g/dL (33.0-36.5); MEAN CORPUSCULAR VOLUME 89.6 FL (78-98); MEAN PLATELET VOLUME 10.1 FL (7.4-10.4); MONOCYTES # (AUTO) 0.9 X10'3 (0-0.9); MONOCYTES % (AUTO) 3.7 % (2-12); NEUTROPHILS # (AUTO) 21.4 X10'3 (1.8-7.7); PLATELET COUNT 89 X10'3 (140-440); RED BLOOD COUNT 2.78 X10'6 (4.20-5.60); RED CELL DISTRIBUTION WIDTH 14.9 % (11.5-14.5); WHITE BLOOD COUNT 23.8 X10'3 (4.5-11.0)
[2021-06-02 07:00] VITALS: BP 98/72
[2021-06-02 07:12] LABS: ALANINE AMINOTRANSFERASE 206 U/L (12-78); ALBUMIN 1.5 G/DL (3.4-5.0); ALBUMIN/GLOBULIN RATIO 0.4 (1.1-1.5); ALKALINE PHOSPHATASE 484 IU/L (46-116); ANION GAP 6 (8-16); ASPARTATE AMINO TRANSFERASE 61 U/L (10-37); BILIRUBIN,TOTAL 0.9 MG/DL (0.1-1.0); BLOOD UREA NITROGEN 29 MG/DL (7-18); BUN/CREATININE RATIO 21.2 (6.6-38.0); CALCIUM 7.7 MG/DL (8.5-10.1); CHLORIDE 108 MMOL/L (99-107); CREATININE 1.37 MG/DL (0.40-0.90); GLUCOSE 101 MG/DL (70-104); MAGNESIUM 2.4 MG/DL (1.5-2.4); SODIUM 142 MMOL/L (135-145); TOTAL CARBON DIOXIDE 27.7 MMOL/L (24-32); TOTAL PROTEIN 5.3 G/DL (6.4-8.2); eGFR 39 ML/MIN
--- NOTE | 2021-06-02 07:16 | NUR ---
Patient in room [facility] 352. I have received report from DERRELL GAMA and had the opportunity to ask questions and assume patient care.
[2021-06-02] MEDS: K and/or MAG REPLACEMENT MC SCH ×2 (08:00→19:37)
[2021-06-02] MEDS: docusate sod 100mg capsule PO SCH ×2 (08:00→19:37)
[2021-06-02] MEDS: multivitamins, therapeutics tablet PO SCH (09:35)
[2021-06-02] MEDS: ascorbic acid 500mg tablet PO SCH (09:35)
[2021-06-02] MEDS: thyroid, pork 30mg tablet PO SCH (09:35)
[2021-06-02] MEDS: calcium carbonate 500mg chew tablet PO SCH (09:36)
[2021-06-02] MEDS: FERROUS SULFATE 142 MG TABLET.ER (45mg elemental) PO SCH (09:36)
[2021-06-02 12:38] VITALS: BP 105/72
[2021-06-02 15:02] LABS: PLATELET ESTIMATE DECREASED; TOTAL CELLS COUNTED 100; TOXIC VACUOLATION 1+
--- NOTE | 2021-06-02 18:33 | NUR ---
PATIENT NOT EATING MUCH OF THE FOOD PROVIDED BY HOSPITAL BUT HAS FAMILY BRING IN FOOD, JUICE, AND WATER FROM HOME Addendum: 06/02/21 at 1834 by Lisset Garcia RN Amended: Links added.
--- NOTE | 2021-06-02 18:38 | NUR ---
Problems reprioritized. Patient report given, questions answered & plan of care reviewed with DERRELL GAMA
--- NOTE | 2021-06-02 19:06 | NUR ---
Patient in room [facility] 352. I have received report from Lisset DOVE and had the opportunity to ask questions and assume patient care.
[2021-06-02 19:39] VITALS: BP 122/79
[2021-06-02 23:32] VITALS: BP 111/59
[2021-06-03] MEDS: normal saline 1000ml 1,000 ML IV SCH ×2 (01:45→02:10)
--- NOTE | 2021-06-03 06:04 | NUR ---
Problems reprioritized. Patient report given, questions answered & plan of care reviewed with Carissa DOVE.
[2021-06-03 06:10] LABS: BASOPHILS % (AUTO) 0 % (0-1); EOSINOPHILS # (AUTO) 0.2 X10'3 (0-0.9); EOSINOPHILS % (AUTO) 1.2 % (0-6); HEMOGLOBIN 8.4 g/dl (12.0-16.0); LYMPHOCYTES # (AUTO) 1.4 X10'3 (1.1-4.8); LYMPHOCYTES % (AUTO) 7.9 % (21-51); MEAN CORPUSCULAR HGB CONC 32.1 g/dL (33.0-36.5); MEAN CORPUSCULAR VOLUME 90.3 FL (78-98); MEAN PLATELET VOLUME 10.3 FL (7.4-10.4); MONOCYTES # (AUTO) 1.2 X10'3 (0-0.9); MONOCYTES % (AUTO) 6.7 % (2-12); NEUTROPHILS # (AUTO) 14.9 X10'3 (1.8-7.7); NEUTROPHILS % (AUTO) 84.2 % (42-75); PLATELET COUNT 112 X10'3 (140-440); RED BLOOD COUNT 2.88 X10'6 (4.20-5.60); RED CELL DISTRIBUTION WIDTH 14.6 % (11.5-14.5); WHITE BLOOD COUNT 17.7 X10'3 (4.5-11.0)
[2021-06-03 06:33] LABS: ALANINE AMINOTRANSFERASE 147 U/L (12-78); ALBUMIN 1.5 G/DL (3.4-5.0); ALBUMIN/GLOBULIN RATIO 0.4 (1.1-1.5); ALKALINE PHOSPHATASE 451 IU/L (46-116); ANION GAP 9 (8-16); ASPARTATE AMINO TRANSFERASE 32 U/L (10-37); BILIRUBIN,TOTAL 0.8 MG/DL (0.1-1.0); BLOOD UREA NITROGEN 21 MG/DL (7-18); BUN/CREATININE RATIO 20.8 (6.6-38.0); CALCIUM 7.9 MG/DL (8.5-10.1); CHLORIDE 108 MMOL/L (99-107); CREATININE 1.01 MG/DL (0.40-0.90); GLUCOSE 119 MG/DL (70-104); MAGNESIUM 2.3 MG/DL (1.5-2.4); POTASSIUM 4.2 MMOL/L (3.5-5.1); SODIUM 142 MMOL/L (135-145); TOTAL CARBON DIOXIDE 24.6 MMOL/L (24-32); TOTAL PROTEIN 5.2 G/DL (6.4-8.2); eGFR 56 ML/MIN
--- NOTE | 2021-06-03 06:59 | NUR ---
Patient in room [facility]LA[facility] 352. I have received report from DERRELL Med[place]in and had the opportunity to ask questions and assume patient care.
[2021-06-03 07:30] VITALS: BP 145/86
[2021-06-03] MEDS: piperacillin/tazo 4.5gm/100ml 100 ML IV SCH (07:37)
[2021-06-03] MEDS: multivitamins, therapeutics tablet PO SCH (07:38)
[2021-06-03] MEDS: FERROUS SULFATE 142 MG TABLET.ER (45mg elemental) PO SCH (07:38)
[2021-06-03] MEDS: ascorbic acid 500mg tablet PO SCH (07:38)
[2021-06-03] MEDS: calcium carbonate 500mg chew tablet PO SCH (07:38)
[2021-06-03] MEDS: thyroid, pork 30mg tablet PO SCH (07:38)
[2021-06-03] MEDS: docusate sod 100mg capsule PO SCH ×2 (07:39→20:00)
[2021-06-03 07:50] LABS: TOTAL CELLS COUNTED 100
[2021-06-03 07:51] LABS: PLATELET ESTIMATE DECREASED
[2021-06-03] MEDS: K and/or MAG REPLACEMENT MC SCH ×2 (08:00→20:00)
--- NOTE | 2021-06-03 10:51 | NUR ---
Reassessment: Pt appears to be eating poorly with mostly 0-25% PO intake of meals however per splicing machine operator automatic family is bringing food, juice and water. Pt already receiving food preferences with meals and has RD contact information for further preferences. ONS not appropriate as pt dislikes current available ONS. Pt now receiving routine MVI and Iron with low serum iron and TIBC per EMR. Pt pending going home on hospice per physician and CM notes. LBM 06/02. Will continue to follow closely. Recommendations: 1) Liberalize to regular diet to optimize PO intake 2) [place] food preferences: Smoothie TIDWM, fruit TIDWM; no Ensure; allow outside food to optimize PO intake 3) Routine MVI, Vitamin C, and Iron per physician 4) Monitor need for pancreatic enzymes in view of stage IV pancreatic CA; lipase <50 U/L on admit 5) Bowel care per rx 6) Scaled weight this admit; weekly scaled weights thereafter Addendum: 06/03/21 at [address] Amended: Links added.
[2021-06-03 12:22] VITALS: BP 133/72
[2021-06-03] MEDS: piperacillin/tazo 3.375gm/50ml 50 ML IV SCH (16:21)
--- NOTE | 2021-06-03 18:42 | NUR ---
Problems reprioritized. Patient report given, questions answered & plan of care reviewed with DERRELL Medellin.
--- NOTE | 2021-06-03 18:47 | NUR ---
Problems reprioritized. Patient report given, questions answered & plan of care reviewed with Lacie DOVE.
[2021-06-03 19:55] VITALS: BP 126/65
[2021-06-03] MEDS: mupirocin 2% ointment 22GM TP SCH (21:13)
[2021-06-04] VITALS: BP 126/62
[2021-06-04] MEDS: piperacillin/tazo 3.375gm/50ml 50 ML IV SCH ×2 (00:31→08:54)
[2021-06-04 06:26] LABS: BASOPHILS % (AUTO) 0.1 % (0-1); EOSINOPHILS # (AUTO) 0.4 X10'3 (0-0.9); EOSINOPHILS % (AUTO) 2.5 % (0-6); HEMATOCRIT 28.5 % (35.0-45.0); HEMOGLOBIN 9.4 g/dl (12.0-16.0); LYMPHOCYTES # (AUTO) 1.4 X10'3 (1.1-4.8); LYMPHOCYTES % (AUTO) 8.8 % (21-51); MEAN CORPUSCULAR HEMOGLOBIN 30.1 PG (27.0-31.0); MEAN CORPUSCULAR HGB CONC 32.9 g/dL (33.0-36.5); MEAN CORPUSCULAR VOLUME 91.4 FL (78-98); MEAN PLATELET VOLUME 9.5 FL (7.4-10.4); MONOCYTES # (AUTO) 1.3 X10'3 (0-0.9); MONOCYTES % (AUTO) 8.4 % (2-12); NEUTROPHILS # (AUTO) 12.9 X10'3 (1.8-7.7); NEUTROPHILS % (AUTO) 80.2 % (42-75); PLATELET COUNT 168 X10'3 (140-440); RED BLOOD COUNT 3.12 X10'6 (4.20-5.60); RED CELL DISTRIBUTION WIDTH 14.8 % (11.5-14.5)
[2021-06-04 06:44] LABS: ALANINE AMINOTRANSFERASE 116 U/L (12-78); ALBUMIN 1.6 G/DL (3.4-5.0); ALBUMIN/GLOBULIN RATIO 0.4 (1.1-1.5); ALKALINE PHOSPHATASE 435 IU/L (46-116); ANION GAP 12 (8-16); ASPARTATE AMINO TRANSFERASE 27 U/L (10-37); BILIRUBIN,TOTAL 0.9 MG/DL (0.1-1.0); BLOOD UREA NITROGEN 13 MG/DL (7-18); BUN/CREATININE RATIO 14.9 (6.6-38.0); CALCIUM 8.2 MG/DL (8.5-10.1); CHLORIDE 105 MMOL/L (99-107); CREATININE 0.87 MG/DL (0.40-0.90); GLUCOSE 121 MG/DL (70-104); POTASSIUM 4.1 MMOL/L (3.5-5.1); SODIUM 139 MMOL/L (135-145); TOTAL CARBON DIOXIDE 22.3 MMOL/L (24-32); TOTAL PROTEIN 5.6 G/DL (6.4-8.2); eGFR 66 ML/MIN
--- NOTE | 2021-06-04 06:45 | NUR ---
Patient in room [facility]LA[facility] 352. I have received report from Lacie DOVE and had the opportunity to ask questions and assume patient care.
--- NOTE | 2021-06-04 06:47 | NUR ---
Problems reprioritized. Patient report given, questions answered & plan of care reviewed with Gayle DOVE.
--- NOTE | 2021-06-04 07:20 | NUR ---
Patient in room [facility]LA[facility] 352. I have received report from DERRELL Med[place]in and had the opportunity to ask questions and assume patient care.
[2021-06-04 07:32] LABS: ANISOCYTOSIS FEW; PLATELET ESTIMATE NORMAL; TOTAL CELLS COUNTED 100
[2021-06-04 07:33] LABS: GIANT PLATELET FEW; POLYCHROMASIA FEW
[2021-06-04] MEDS: docusate sod 100mg capsule PO SCH (08:55)
[2021-06-04] MEDS: multivitamins, therapeutics tablet PO SCH (08:55)
[2021-06-04] MEDS: thyroid, pork 30mg tablet PO SCH (08:55)
[2021-06-04] MEDS: ascorbic acid 500mg tablet PO SCH (08:55)
[2021-06-04] MEDS: calcium carbonate 500mg chew tablet PO SCH (08:55)
[2021-06-04] MEDS: FERROUS SULFATE 142 MG TABLET.ER (45mg elemental) PO SCH (08:55)
[2021-06-04] MEDS: mupirocin 2% ointment 22GM TP SCH (08:56)
[2021-06-04] MEDS ORDERED: FERR142T13 PO (09:22)
[2021-06-04] MEDS ORDERED: AMOX-580 PO (09:22)
--- NOTE | 2021-06-04 10:40 | NUR ---
Patient discharged at 1015. All belongings were taken including cellphone. IV removed and canula was intact. Patient was taken to the lobby by auxiliary to where her spouse was waiting with the vehicle. Addendum: 06/04/21 at 1625 by Gayle Davis RN Pt went home with boyfriend. pt is A & O x4 and in no apparent distress. Pt verbalizes understanding of all DC orders and knows how important it is to finish all antibiotics. [facility] is coming to see her at 1100 at home. pt is aware. Pt and boyfriend packed all belonging and he took them out to the car. pt dressed and wheeled to the front where boyfriend took her home.
--- NOTE | 2021-06-04 15:18 | NUR ---
Student documentation: I have reviewed and agree with all interventions, assessments performed and documented by [facility] [facility] student.
== END 2021-06-04 10:17 | disposition hospice, home (50) | DRG 720 ==
LOC: ER 08:55 → ED HOLD 14:15 → SUR 3N 15:45
PROVIDERS: ADMIT Family Medicine; ATTEND Family Medicine
PROC: 02HV33Z Insertion of Infusion Device into Superior Vena Cava, Percutaneous Approach (ICD-10-PCS; principal; 2021-05-30)
DX: A41.59 Other Gram-negative sepsis (principal); N17.0 Acute kidney failure with tubular necrosis; E87.2 Acidosis; D69.6 Thrombocytopenia, unspecified; C25.9 Malignant neoplasm of pancreas, unspecified; D63.8 Anemia in other chronic diseases classified elsewhere; K83.09 Other cholangitis; I95.9 Hypotension, unspecified; E87.1 Hypo-osmolality and hyponatremia; L01.00 Impetigo, unspecified; C78.7 Secondary malignant neoplasm of liver and intrahepatic bile duct; Z66 Do not resuscitate; E86.0 Dehydration; R74.01 Elevation of levels of liver transaminase levels; E03.9 Hypothyroidism, unspecified; G89.29 Other chronic pain; Z51.5 Encounter for palliative care; Z82.49 Family history of ischemic heart disease and other diseases of the circulatory system; Z79.899 Other long term (current) drug therapy
CPT/HCPCS: 36415; 36556; 71045; 71250; 74176; 80053; 81001; 83540; 83550; 83605; 83690; 83735; 84145; 84484; 85007; 85025; 85610; 87040; 87077; 87081; 87186; 93005; 93306; 94640; 94760; 96374; 96375; 97116; 97161; 97530; 99291; G0378; J1100; J1644; J2543; J3370; J3490; J7030; J7070; J7120